=== PATIENT | female | born 2000 | race Two or more races ===

== ENCOUNTER 2021-06-28 05:59 | Emergency (ER) | payer OTHER ==
[2021-06-28] MEDS ORDERED: ACETAMINOPHEN 325 MG TABLET (FP) PO ONE (06:19)
[2021-06-28 06:26] VITALS: BP 117/82; PULSE 124; TEMP 98.8; BMI 22.1
[2021-06-28] MEDS ORDERED: ACETAMINOPHEN 325 MG TABLET (FP) ONE (06:51)
== END 2021-06-28 07:07 | disposition home or self-care (01) ==
LOC: JER 05:59
DX: M79.605 Pain in left leg (principal); M25.572 Pain in left ankle and joints of left foot; V87.7XXA Person injured in collision between other specified motor vehicles (traffic), initial encounter; Y92.9 Unspecified place or not applicable
CPT/HCPCS: 99283-25; 99284-25

== ENCOUNTER 2021-10-18 23:34 | Emergency (ER) | payer OTHER ==
[2021-10-18 23:53] VITALS: BMI 24.0
[2021-10-19] MEDS ORDERED: ACETAMINOPHEN 325 MG TABLET (FP) PO ONE (00:28)
[2021-10-19] MEDS ORDERED: SODIUM CHLORIDE 0.9% 500 ML INFUS.BAG IV ONE (00:44)
[2021-10-19] MEDS ORDERED: ACETAMINOPHEN 325 MG TABLET (FP) ONE (01:08)
[2021-10-19 01:09] LABS: BASO % 0.3 % (0-2.0); EOS % 0.2 % (0-4.5); HEMATOCRIT 37.3 % (32.4-45.2); HEMOGLOBIN 12.9 GM/dL (10.7-15.3); LYMPH % 6.1 % (8-40); MCH 30.9 pg (25.7-33.7); MCHC 34.7 g/dl (32.0-36.0); MEAN CELL VOLUME 89.1 fl (80-96); MEAN PLT VOLUME 10.4 fl (7.5-11.1); MONO % 5.9 % (3.8-10.2); NEUT % 87.5 % (42.8-82.8); PLATELET COUNT 143 10^3/uL (134-434); RBC 4.19 M/mm3 (3.60-5.2); RDW 12.6 % (11.6-15.6); WHITE BLOOD COUNT 6.9 K/mm3 (4.0-10.0)
[2021-10-19 01:35] LABS: CALCIUM 8.9 mg/dL (8.5-10.1)
[2021-10-19 01:36] LABS: ALBUMIN 3.6 g/dl (3.4-5.0); BLOOD UREA NITROGEN 8.9 mg/dL (7-18)
[2021-10-19 01:39] LABS: CREATININE 0.8 mg/dL (0.55-1.3)
[2021-10-19 01:41] LABS: BILIRUBIN,TOTAL 0.8 mg/dL (0.2-1)
[2021-10-19 02:59] VITALS: BP 99/62; PULSE 95; TEMP 99.1
== END 2021-10-19 04:27 | disposition home or self-care (01) ==
LOC: JER 23:34
DX: R50.9 Fever, unspecified (principal); R05.1 Acute cough; J02.9 Acute pharyngitis, unspecified
CPT/HCPCS: 36415; 71046-TC-FY; 80053; 84703; 85025; 87804; 93005; 93010; 99285-25; C9803-CS; U0003; U0005